=== PATIENT | female | born 1960 | race Caucasian/White ===

== ENCOUNTER 2023-01-23 06:42 | Observation (INO) ==
--- NOTE | 2022-12-08 11:16 | PAT Medication Instructions ---
Medication Instructions Date of Service December 08, 2022 Home Medications magnesium 250 mg tablet 500 mg PO BID muscle cramping Elderberry 50 mg PO DAILY PRN Cold Symptoms Lactobacillus 40-Bifidobact 3-S.thermophilus 100 billion cell capsule (Probiotic) 1 cap PO DAILY PRN Constipation acetylcysteine (bulk) 1 ea miscellaneous DAILY albuterol sulfate 90 mcg/actuation aerosol inhaler (ProAir HFA) 2 puff inhalation QID PRN Shortness Of Breath ascorbic acid (vitamin C) 500 mg chewable tablet (Vitamin C) 500 mg PO DAILY aspirin 81 mg capsule 81 mg PO DAILY biotin 10,000 mcg capsule 10,000 mcg PO DAILY calcium citrate 250 mg PO DAILY PRN if hasn't had enough calcium recently cholecalciferol (vitamin D3) 25 mcg (1,000 unit) tablet (Vitamin D3) 25 mcg PO BID digestive enzymes 1 tab PO DAILY PRN "if she eats bad" garlic 1 cap PO DAILY PRN Cold Symptoms herbal complex no.174 450 mg capsule 450 mg PO DAILY PRN Cold Symptoms potassium chloride 10 mEq capsule,extended release 10 meq PO DAILY quercetin 800 mg PO DAILY turmeric root extract 500 mg capsule 500 mg PO DAILY PRN cold symptoms/pain vitamin B complex 1 cap PO DAILY zinc 50 mg capsule 50 mg PO DAILY STOP taking 2 weeks before surgery Elderberry 50 mg PO DAILY PRN Cold Symptoms biotin 10,000 mcg capsule 10,000 mcg PO DAILY digestive enzymes 1 tab PO DAILY PRN "if she eats bad" garlic 1 cap PO DAILY PRN Cold Symptoms herbal complex no.174 450 mg capsule 450 mg PO DAILY PRN Cold Symptoms quercetin 800 mg PO DAILY turmeric root extract 500 mg capsule 500 mg PO DAILY PRN cold symptoms/pain acetylcysteine (bulk) 1 ea miscellaneous DAILY DO NOT take the morning of surgery magnesium 250 mg tablet 500 mg PO BID muscle cramping Lactobacillus 40-Bifidobact 3-S.thermophilus 100 billion cell capsule (Probiotic) 1 cap PO DAILY PRN Constipation ascorbic acid (vitamin C) 500 mg chewable tablet (Vitamin C) 500 mg PO DAILY calcium citrate 250 mg PO DAILY PRN if hasn't had enough calcium recently cholecalciferol (vitamin D3) 25 mcg (1,000 unit) tablet (Vitamin D3) 25 mcg PO BID potassium chloride 10 mEq capsule,extended release 10 meq PO DAILY vitamin B complex 1 cap PO DAILY zinc 50 mg capsule 50 mg PO DAILY Take morning of surgery With a small sip of water, OTHERWISE NOTHING TO EAT OR DRINK AFTER MIDNIGHT: albuterol sulfate 90 mcg/actuation aerosol inhaler (ProAir HFA) 2 puff inhalation QID PRN Shortness Of Breath aspirin 81 mg capsule 81 mg PO DAILY (unless surgeon directed otherwise) Take evening before surgery magnesium 250 mg tablet 500 mg PO BID muscle cramping Lactobacillus 40-Bifidobact 3-S.thermophilus 100 billion cell capsule (Probiotic) 1 cap PO DAILY PRN Constipation (if needed) cholecalciferol (vitamin D3) 25 mcg (1,000 unit) tablet (Vitamin D3) 25 mcg PO BID albuterol sulfate 90 mcg/actuation aerosol inhaler (ProAir HFA) 2 puff inhalation QID PRN Shortness Of Breath (if needed) Other Notes If you have any questions please call us at [phone] or [phone] or [phone] or [phone]
--- NOTE | 2022-12-09 09:32 | Anesthesiology Consultation ---
Date of Service December 09, 2022 Assessment & Plan (1) Encounter for pre-operative examination: Chart Review Chart Review: Acceptable Risk for Surgery and Patient seen in Pre Admission Testing Pt currently scheduled as 23 hours observation. If surgeon decides to change patient to Same Day Joint, patient would be acceptable risk for TKA, pending patient is motivated, has good support and surgeon's office completes [facility] Program preop requirements. Per PAT appt on 12/09/22, no recent Covid exposures, Covid related symptoms, or recent Covid positive tests. Will leave to surgeon's discretion if preop Covid testing needed Teaching & Discussion Pre-Anesthesia Teaching/Discussion Notes: Instructed NPO after midnight before surgery,except medications with 15 cc of water. Medication instructions provided according to the PAT guidelines. History Surgery Operation Date: 01/23/23 11:00 Proposed Procedures p Right Total Knee Arthroplasty - Chris Muhammad, Height/Weight Height: 5 ft 4 in Weight: 84.8 kg Allergies Allergy/AdvReac Type Severity Reaction Status Date / Time Sulfa (Sulfonamide Allergy Unknown itching Verified 12/05/22 07:58 Antibiotics) all over body Medications Home Medications Medication Instructions Recorded Confirmed Last Taken magnesium 250 mg tablet 500 mg PO BID muscle cramping 11/19/22 12/05/22 Unknown Elderberry 50 mg PO DAILY PRN Cold Symptoms 12/05/22 12/05/22 Unknown Lactobacillus 40-Bifidobact 1 cap PO DAILY PRN Constipation 12/05/22 12/05/22 Unknown 3-S.thermophilus 100 billion cell capsule (Probiotic) acetylcysteine (bulk) 1 ea miscellaneous DAILY 12/05/22 12/05/22 Unknown albuterol sulfate 90 mcg/actuation 2 puff inhalation QID PRN 12/05/22 12/05/22 Unknown aerosol inhaler (ProAir HFA) Shortness Of Breath ascorbic acid (vitamin C) 500 mg 500 mg PO DAILY 12/05/22 12/05/22 Unknown chewable tablet (Vitamin C) aspirin 81 mg capsule 81 mg PO DAILY 12/05/22 12/05/22 Unknown biotin 10,000 mcg capsule 10,000 mcg PO DAILY 12/05/22 12/05/22 Unknown calcium citrate 250 mg PO DAILY PRN if hasn't had 12/05/22 12/05/22 Unknown enough calcium recently cholecalciferol (vitamin D3) 25 25 mcg PO BID 12/05/22 12/05/22 Unknown mcg (1,000 unit) tablet (Vitamin D3) digestive enzymes 1 tab PO DAILY PRN "if she eats 12/05/22 12/05/22 Unknown bad" garlic 1 cap PO DAILY PRN Cold Symptoms 12/05/22 12/05/22 Unknown herbal complex no.174 450 mg 450 mg PO DAILY PRN Cold Symptoms 12/05/22 12/05/22 Unknown capsule potassium chloride 10 mEq 10 meq PO DAILY 12/05/22 12/05/22 Unknown capsule,extended release quercetin 800 mg PO DAILY 12/05/22 12/05/22 Unknown turmeric root extract 500 mg 500 mg PO DAILY PRN cold 12/05/22 12/05/22 Unknown capsule symptoms/pain vitamin B complex 1 cap PO DAILY 12/05/22 12/05/22 Unknown zinc 50 mg capsule 50 mg PO DAILY 12/05/22 12/05/22 Unknown Past Medical History Medical History History of chronic cough tends to cough when laughing a lot and sometimes needs inh prn-"hardly uses" History of COVID-19 x2, most recent in 10/2021, not hosp; cold/flu symptoms both times having covid>no residual symptoms Kyphosis Nausea and vomiting after administration of anesthetic agent following shoulder surgery, had to be hospitalized overnight Scoliosis TMJ (temporomandibular joint syndrome) wears device at night Exercise / Class Metabolic Activity II 4-5 Yardwork/Stairs/Walk up hill (one flight of stairs - no chest pain or SOB- uses cane for support in public (especially after prolonged sitting) ) Past Family History Family History Father Colorectal cancer Past Surgical History Surgical History History of arthroscopy of right shoulder History of esophagogastroduodenoscopy (EGD) Hx of arthroscopy of right knee Hx of colonoscopy Hx of dilation of urethra under anesthesia as child Hx of knee surgery lt knee to try to stop growth of her femur due to her scoliosis and kyphosis [place] teeth extracted Past Anesthesia History No Hx of Anesthesia Complications (with exception to remote hx of PONV ) and No Family Hx of Anesthesia Complications History of PONV History of PONV (remote history - with shoulder surgery - had to stay overnight - had subsequent surgeries without issues ) and Hx of Motion Sickness (possible ) Social History Smoking Status: Never smoker Do You Dip or Chew Tobacco: No Hx Alcohol Use: Yes Alcohol type: wine alcohol intake frequency: a few times a month Hx Substance Use: Yes substance use type: former substance user and marijuana Last Used Substance Other:: only while in college-"a little bit" Review of Systems Coughing - started 11/20/22- improving. No fever or chills. No treatment needed. Patient denies chest pain, shortness of breath, dyspnea on exertion, reflux, cough, wheezing, palpitations. No hx of seizures, stroke, NC, apnea/snoring. No hx of blood clots or blood transfusions Physical Exam Vital Signs VITALS BP 110/73 P 75 TEMP 98.2 SP02 95% RESP 16 Constitutional no acute distress ENMT Mouth: no TMJ clicking Thyromental Distance: > or= 3.5 Finger Breadths (3.5) Mallampati Class: II Missing molar Two front teeth capped Neck neck extension not limited Respiratory normal respiratory effort; no respiratory distress Auscultation: lungs clear to auscultation bilaterally; no wheezes Cardiovascular Rate/Rhythm: regular rate and regular rhythm Heart Sounds: no murmur Vessels: no carotid bruit Musculoskeletal Spine: no pain with cervical ROM Extremities: extremities normal to inspection Psychiatric Orientation: alert Lab Results Anesthesia Preop Results Results Anesthesia Widget: WBC 7.50 K/ul (4.8-10.8) 12/09/22 Hgb 14.3 g/dl (12.0-16.0) 12/09/22 Hct 42.3 % (37.0-47.0) 12/09/22 Plt 356 K/uL (130-400) 12/09/22 Na 140 mmol/L (136-145) 12/09/22 K 4.2 mmol/L (3.5-5.1) 12/09/22 Cl 107 mmol/L (98-107) 12/09/22 CO2 27 mmol/L (21-32) 12/09/22 BUN 17 mg/dl (6-23) 12/09/22 Creat 0.74 mg/dl (0.6-1.2) 12/09/22 Glucose Level 88 mg/dl (70-99(Fasting)) 12/09/22 PT 10.6 Seconds (9.0-12.0) 12/09/22 PTT 27.6 Seconds (21.0-31.0) 12/09/22 INR 1.0 (0.9-1.1) 12/09/22 Blood Type O Positive 12/09/22 Antibody Screen NEGATIVE 12/09/22 Testing Electrocardiogram Date: 12/09/22 Findings: + NSR @ (67bpm ) Normal EKG per cardio Chest X-Ray Date: 12/09/22 Findings: + NAD FINDINGS: Lung volumes are normal. Lungs are clear. There is no pneumothorax or pleural effusion. Cardiac size is normal. Mediastinal contours are normal. There is no evidence for pulmonary edema.
--- NOTE | 2023-01-22 07:58 | History & Physical Report ---
Date of Service January 22, 2023 Assessment & Plan (1) Osteoarthritis of right knee: We will proceed with a right total knee arthroplasty. Postoperatively she will be started on aspirin for DVT prophylaxis and kept overnight in the hospital for postop medical management. She plans to use [facility] upon discharge. History of Present Illness Chief Complaint: Osteoarthritis of the right knee. 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 It has been ever since she was a kid. She was always right bow-legged. She never noticed it much. She was very active. She has been having more and more pain over the last few years. Most of her pain is located in her knee. X-rays and clinical examination have been diagnostic for advanced osteoarthritis of the right knee. After failed conservative treatment, she has elected proceed with a right total knee arthroplasty. . Allergies Allergy/AdvReac Type Severity Reaction Status Date / Time Sulfa (Sulfonamide Allergy Unknown itching Verified 12/05/22 07:58 Antibiotics) all over body Home Medications Medication Instructions Recorded Confirmed Type magnesium 250 mg tablet 500 mg PO BID muscle cramping 11/19/22 12/05/22 History Elderberry 50 mg PO DAILY PRN Cold Symptoms 12/05/22 12/05/22 History Lactobacillus 40-Bifidobact 1 cap PO DAILY PRN Constipation 12/05/22 12/05/22 History 3-S.thermophilus 100 billion cell capsule (Probiotic) acetylcysteine (bulk) 1 ea miscellaneous DAILY 12/05/22 12/05/22 History albuterol sulfate 90 mcg/actuation 2 puff inhalation QID PRN 12/05/22 12/05/22 History aerosol inhaler (ProAir HFA) Shortness Of Breath ascorbic acid (vitamin C) 500 mg 500 mg PO DAILY 12/05/22 12/05/22 History chewable tablet (Vitamin C) aspirin 81 mg capsule 81 mg PO DAILY 12/05/22 12/05/22 History biotin 10,000 mcg capsule 10,000 mcg PO DAILY 12/05/22 12/05/22 History calcium citrate 250 mg PO DAILY PRN if hasn't had 12/05/22 12/05/22 History enough calcium recently cholecalciferol (vitamin D3) 25 25 mcg PO BID 12/05/22 12/05/22 History mcg (1,000 unit) tablet (Vitamin D3) digestive enzymes 1 tab PO DAILY PRN "if she eats 12/05/22 12/05/22 History bad" garlic 1 cap PO DAILY PRN Cold Symptoms 12/05/22 12/05/22 History herbal complex no.174 450 mg 450 mg PO DAILY PRN Cold Symptoms 12/05/22 12/05/22 History capsule potassium chloride 10 mEq 10 meq PO DAILY 12/05/22 12/05/22 History capsule,extended release quercetin 800 mg PO DAILY 12/05/22 12/05/22 History turmeric root extract 500 mg 500 mg PO DAILY PRN cold 12/05/22 12/05/22 History capsule symptoms/pain vitamin B complex 1 cap PO DAILY 12/05/22 12/05/22 History zinc 50 mg capsule 50 mg PO DAILY 12/05/22 12/05/22 History Past Med/Surg History Medical History History of chronic cough tends to cough when laughing a lot and sometimes needs inh prn-"hardly uses" History of COVID-19 x2, most recent in 10/2021, not hosp; cold/flu symptoms both times having covid>no residual symptoms Kyphosis Nausea and vomiting after administration of anesthetic agent following shoulder surgery, had to be hospitalized overnight Scoliosis TMJ (temporomandibular joint syndrome) wears device at night Surgical History History of arthroscopy of right shoulder History of esophagogastroduodenoscopy (EGD) Hx of arthroscopy of right knee Hx of colonoscopy Hx of dilation of urethra under anesthesia as child Hx of knee surgery lt knee to try to stop growth of her femur due to her scoliosis and kyphosis [place] teeth extracted Family History Father Colorectal cancer Social History Smoking Status: Never smoker Second Hand Exposure: No; Do You Dip or Chew Tobacco: No; Hx Alcohol Use: Yes Alcohol type: wine Hx Substance Use: Yes Last Used Substance Other:: only while in college-"a little bit" Preferred Language: [place] Communication Ability: Effective Hedge Trimmer Required: No Beliefs That Will Affect Care: None Current Living Situation: Family Feels Safe at Home: Yes Assistive Devices: Glasses and Other Review of Systems All systems reviewed & are unremarkable except as noted in HPI & below. Physical Exam On physical examination of the right knee, she does have a genu varum deformity. She is a leg length discrepancy. She is severe scoliosis of her lumbar spine. She has no gross ligamentous laxity. She has pain of the distal medial femoral condyle.. Constitutional WD/WN, vitals as above Eyes PERRL, conjunctivae normal, anicteric sclerae ENMT external ear and nose normal, oropharynx normal Neck trachea midline, no thyromegaly Respiratory normal respiratory effort, lungs clear to auscultation Cardiovascular RRR, no murmur, no edema Gastrointestinal (Abdomen) normal bowel sounds, soft, nontender, no hepatosplenomegaly Skin no rashes, warm and dry Psychiatric A+Ox3, euthymic affect Results & Data Results & Data Laboratory Results . Diagnostic Findings X-rays of the right knee show advanced osteoarthritis with joint space narrowing, osteophyte formation, and [id number] tubulation.. PG Care Time/CCT Total # of Minutes Spent Total Time Spent with Patient: Total time spent is greater than 50% in coordination of care (as documented) at patient's floor/unit and/or counseling patient: Coding Level of Care Code None Diagnoses Osteoarthritis of right knee M17.11
--- NOTE | 2023-01-23 06:32 | History & Physical Bridge Note ---
Date of Service January 23, 2023 History & Physical Bridge Note I have examined the patient, reviewed the History & Physical and in the interval since the performance of the History & Physical I have noted the following changes of clinical significance: no changes noted
[~2023-01-23 06:42] MED LIST: ACETAMINOPHEN 500 MG TAB PO SCH; FAMOTIDINE 20 MG TAB PO SCH; GABAPENTIN 600 MG DOSE PO SCH; LR 500ML BOLUS, THEN 15ML/HR IV SCH; LR 60ML/HR IV SCH; ORTHO JOINT ANESTHETIC ONE; ORTHO JOINT MIX INFIL SCH; ROPIVACAINE 0.5% 5 MG/ML 30 ML VIAL ONE; TRANEXAMIC ACID 1,000 MG **IV Intra-op IV SCH; TRANEXAMIC ACID 1,000 MG **IV Pre-op IV SCH; ceFAZolin 2000MG 2,000 MG/15 ML SYR IV SCH; dexAMETHasone 4 MG TAB PO SCH
[2023-01-23] MEDS ORDERED: MIDAZOLAM HCL 1 MG/ML 2ML VIAL ONE (07:03)
[2023-01-23] MEDS ORDERED: ePHEDrine sulfate 50 MG/ML AMP IV PRN (07:25)
[2023-01-23] MEDS ORDERED: ONDANSETRON INJ 2 MG/ML 2 ML VIAL IV PRN ×2 (07:25→13:11)
[2023-01-23] MEDS ORDERED: fentaNYL citrate PF 100 MCG/2 ML VIAL IV PRN (07:25)
[2023-01-23] MEDS ORDERED: HYDROmorphone INJ 2 MG/ML SYR/VIAL IV PRN (07:25)
[2023-01-23] MEDS ORDERED: ATROPINE SULFATE 0.1 MG/ML 10ML SYR IV PRN (07:25)
[2023-01-23] MEDS ORDERED: PHENYLEPHRINE 100MCG/ML 5ML SYR ONE (08:34)
[2023-01-23] MEDS ORDERED: PHENYLEPHRINE HCL 10 MG/ML VIAL ONE (08:34)
[2023-01-23] MEDS ORDERED: PROPOFOL IV EMULSION 10 MG/ML 20 ML VIAL IV ONE ×2 (08:34→09:41)
--- NOTE | 2023-01-23 09:48 | Operative Report ---
PG Post Operative Report Pre & Post Diagnosis Operation Date: 01/23/23 08:10 Pre-Op Diagnosis: Degenerative Joint Disease Right Knee Post-Op Diagnosis: Degenerative Joint Disease Right Knee I identified the patient and participated in the time-out.: Yes Procedure Operation Date: 01/23/23 08:10 Actual Procedures p Right Total Knee Arthroplasty(Right) - Chris Muhammad DO Surgeon Chris Muhammad DO Fly Maker Chris Nguyen PA-C Estimated Blood Loss 30 Findings Consistent with Post-Op Diagnosis Specimens Right femoral tibial bone Description of Procedure Implants used: I used a Kierra Persona total knee arthroplasty system with a size 7 PRK femur with a 30 mm stem extension, E tibia with a 30 mm stem extension, 31 oval patella, and a size 14 CCK polyethylene bearing. All components were cemented in place with Biomet cement. Merry arrived [facility] for the above procedure. She was seen in the preoperative holding area and the operative extremity was identified and signed. She was given a preoperative antibiotic, TXA, a spinal anesthetic and an adductor nerve block. She was taken back to the operating room and laid on the table in supine position. She was given basic sedation. The operative knee was then prepped and draped in sterile fashion. A timeout was done, and the patient and the operative extremity was properly identified. A midline incision was made directly over the patella. Dissection was taken down to the extensor mechanism. A medial parapatellar arthrotomy was used. The medial retinaculum was released and the fat pad was mostly excised. The knee was flexed and the ACL, PCL, and meniscus were removed. A drill was sent down the center of the femoral canal followed by an intramedullary krystina. Off that krystina a distal femoral cutting block was placed. 9 mm was resected off the distal femur at 5 of valgus. A posterior referencing AP sizing guide was then placed on the distal femur. The femur measured to be a size 7. 2 drill holes were placed in 3 of external rotation. A 4-in-1 cutting block was then impacted into place. Anterior, posterior, and chamfer cuts were then made. The proximal tibia was then exposed. An external tibial alignment guide was placed. A tibial cut guide was then anchored in place and the proximal tibia was then resected. The posterior aspect of the knee was then opened up and any additional meniscus fragments and osteophytes were removed. The tibia measured to be a size E. The tibial plate was then placed in the appropriate rotation and the tibia was drilled and punched. Trial components were then placed. I used a size 14 CCK polyethylene insert. The knee was brought through a full range of motion and felt to be stable. The peg holes for the femoral component were then drilled. The patella was then everted and 9 mm was resected off the posterior aspect of the patella. The patella measured to be a size 31 oval. 3 peg holes were then drilled. A trial patella was placed. The knee was once again brought through a full range of motion and felt to be stable. Trial components were then removed. The surrounding soft tissues were injected with 100 cc of an orthopedic pain control cocktail. All components were then cemented into place with Biomet cement. The final polyethylene insert was then snapped into place. Once cement was dry the tourniquet was deflated. Hemostasis was obtained. A dilute betadyne lavage was then done for 3 minutes. The joint was then irrigated with normal saline solution. The medial parapatellar arthrotomy was then closed with #1 Vicryl suture. The skin was closed with 2-0 Vicryl, 3-0V lock suture, and raudel. A soft compressive dressing was placed. She was then transferred to a hospital bed and taken to the postanesthesia care unit in stable condition. She tolerated the procedure well. Chris Nguyen PA-C, was present for the entire procedure. He was critical for patient positioning, prepping, draping, retraction exposure, wound closure and application of sterile dressing. I attest to the content of the Intraoperative Record and any orders documented therein. Any exceptions are noted below.
--- NOTE | 2023-01-23 10:28 | Anesthesiology Progress Note ---
Date of Service January 23, 2023 Anesthesia Post Procedure Vital Signs Vital Signs: Temp Pulse Resp BP Pulse Ox O2 Del Method 01/23/23 07:22 36.6 C 74 18 137/72 97 Room Air Transfer of Care Handoff Completed per policy Notes Mental Status: alert / awake / arousable and participated in evaluation Patient Amnestic to Procedure: Yes Nausea / Vomiting: adequately controlled Pain: adequately controlled Airway Patency, RR, SpO2: stable & adequate BP & HR: stable & adequate Hydration State: stable & adequate Anesthetic Complications: no major complications apparent and Pt Satisfied with anesthetic care
--- NOTE | 2023-01-23 10:53 | XRay Report ---
XR knee RT 1 or 2V routine HISTORY: 62 years-old Female Surgical Post Op right knee arthroplasty COMPARISON: 11/19/2022 TECHNIQUE: 2 views of the right knee FINDINGS: Total joint arthroplasty with patellar resurfacing. Anterior midline skin raudel with expected posto perative soft tissue swelling and deep tissue air. No acute fracture, dislocation or unexpected opaqu e foreign body. IMPRESSION: Total joint arthroplasty with expected postoperative changes. ACT 112: Negative or not required by law. The above report was generated using voice recognition software. It may contain grammatical, syntax o r spelling errors. Electronically signed by: Derick James M.D. 01/23/2023 10:51 AM
[2023-01-23] MEDS ORDERED: oxyCODONE HCL IR 5 MG TAB (IMMEDIATE RELEASE) PO PRN (13:11)
[2023-01-23] MEDS ORDERED: ALBUTEROL HFA 8 GM INHALER INH PRN (13:11)
[2023-01-23] MEDS ORDERED: HYDROmorphone INJ 0.5 MG/0.5 ML SYR IV PRN (13:11)
[2023-01-23] MEDS ORDERED: bisacodyL 10 MG SUPP PR PRN (13:11)
[2023-01-23] MEDS ORDERED: MAGNESIUM HYDROXIDE SUSP 30 ML UDC PO PRN (13:11)
[2023-01-23] MEDS ORDERED: METOCLOPRAMIDE HCL INJ 5 MG/ML 2 ML VIAL IV PRN (13:11)
[2023-01-23] MEDS ORDERED: NALOXONE HCL 0.4 MG/1 ML VIAL/CARP IV PRN (13:11)
[2023-01-23] MEDS: SODIUM CHLORIDE 0.9% 1,000 ML IV SCH ×2 (13:57→21:58)
[2023-01-23] MEDS: KETOROLAC 30 MG/ML VIAL IV SCH ×2 (13:58→19:54)
[2023-01-23] MEDS: ACETAMINOPHEN 500 MG TAB PO SCH ×2 (16:15→23:15)
[2023-01-23] MEDS: ceFAZolin 2000MG 2,000 MG/15 ML SYR IV SCH ×2 (16:15→23:15)
[2023-01-23] MEDS ORDERED: SENNA 8.6 MG TAB PO SCH (21:00)
[2023-01-23] MEDS: DOCUSATE SODIUM 100 MG CAP PO SCH (21:53)
[2023-01-23] MEDS: ASPIRIN 81 MG ECTAB PO SCH (21:53)
[2023-01-24] MEDS: KETOROLAC 30 MG/ML VIAL IV SCH ×2 (02:16→08:23)
[2023-01-24] MEDS: ACETAMINOPHEN 500 MG TAB PO SCH (06:08)
--- NOTE | 2023-01-24 07:11 | Orthopedic Progress Note ---
Date of Service January 24, 2023 Assessment & Plan (1) Status post right knee replacement: Overall she is doing very well. She is not having much pain in the right knee. The cramping she is having is around her quad and her hamstring. She will be seen by physical therapy today for ambulation and range of motion exercises. The nursing staff can change her dressing after physical therapy. She is on aspirin for DVT prophylaxis. She can be discharged home later today. She will follow-up with orthopedics in 2 weeks. Li Ferro was seen and examined at bedside this morning. Overall she is doing fairly well. She is not having too much pain in the right knee. She was having some cramping last night. She has been up and ambulating into the hallways. She has no complaints.. Review of Systems All systems reviewed & are unremarkable except as noted in HPI & below. Physical Exam On physical examination of the right knee, the dressing is clean and dry. Her leg is out full extension. She has active dorsiflexion plantarflexion of her right ankle.. Results & Data Results & Data Laboratory Results . Diagnostic Findings Postoperative x-rays of the right knee show the prosthesis to be in anatomic alignment without any evidence of fracture complication, or loosening.. PG Care Time/CCT Total # of Minutes Spent Total Time Spent with Patient: Total time spent is greater than 50% in coordination of care (as documented) at patient's floor/unit and/or counseling patient: Coding Level of Care Code 39573 Post Operative Follow-Up Diagnoses Status post right knee replacement Z96.651
--- NOTE | 2023-01-24 07:12 | Discharge Summary ---
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 It has been ever since she was a kid. She was always right bow-legged. She never noticed it much. She was very active. She has been having more and more pain over the last few years. Most of her pain is located in her knee. X-rays and clinical examination have been diagnostic for advanced osteoarthritis of the right knee. After failed conservative treatment, she has elected proceed with a right total knee arthroplasty. . Admission Exam (Per Admitting) On physical examination of the right knee, she does have a genu varum deformity. She is a leg length discrepancy. She is severe scoliosis of her lumbar spine. She has no gross ligamentous laxity. She has pain of the distal medial femoral condyle.. Principal Diagnosis Same as "Discharge Diagnosis" noted below under Discharge Instructions. Discharge Exam On physical examination of the right knee, the dressing is clean and dry. Her leg is out full extension. She has active dorsiflexion plantarflexion of her right ankle.. Discharge Data Procedures Performed Operation Date: 01/23/23 08:10 Actual Procedures p Right Total Knee Arthroplasty(Right) - Chris Muhammad DO Ordered Studies 01/23/23 05:00 US - OR guided needle placemen Routine Hospital Course (1) Status post right knee replacement: On January 23, 2023 Merry arrived at [facility] and underwent a right knee replaced without complication. She had a spinal anesthetic. Postoperatively she was started on aspirin for DVT prophylaxis and transferred to the general orthopedic floors. Her hospital course was uneventful. On postop day #1, her vital signs were stable and her pain was well controlled. She was able to participate well with physical therapy doing ambulation and range of motion exercises. She was then discharged home. She will follow-up with orthopedics in 2 weeks. PG Care Time/CCT Total # of Minutes Spent Total Time Spent with Patient: Total time spent is greater than 50% in coordination of care (as documented) at patient's floor/unit and/or counseling patient: Discharge Plan Discharge Items Patient Disposition: Home - Home Health Services Reason For Visit: Degenerative Joint Disease Right Knee Discharge Diagnosis: Right knee replacement Activity: Per Instructions section Non-emergency contact: Surgeon Call non-emergency contact if: your wound has increased redness and your wound has increased drainage Follow-up/Referrals: PCP,NO [Primary Care Provider] - Diet: Regular Addtl Attending Provider Instructions: Activity and Therapy Recommendations: * If you are using [facility] then therapy will be provided at your home until they feel you have accomplished all of your goals. * If you are using [facility] then Physical Therapy will be provided until they feel you are ready to start Outpatient Physical Therapy. * If you are not using home therapy then Outpatient Physical Therapy should start about 3-5 days from your day of surgery. Therapy will last about 6-10 weeks * It is important not to put a pillow under your knee when you are relaxing or sleeping. It is just as important to make sure you are getting your knee perfectly straight as it is to regain your knee bend. * You were shown a series of exercises in the hospital. Do these exercises three times each day including the exercises you were shown in physical therapy. * Get up and walk several times each day. For the first four weeks, try not to stand or walk for more than one hour at a time. If you do stand or walk for more than one hour, you will not hurt anything, but your leg will likely swell. * As you feel comfortable, you may change from the walker or crutches to a cane and then to independent walking. Medications: * Narcotic You will likely be sent home from the hospital with a prescription for the narcotic pain medication that worked best throughout your stay. * Aspirin Most patients will be required to take Aspirin 81mg twice a day for 6 weeks after surgery. This is obtained [id number] and a prescription is not necessary. * Other medications may be prescribed for specific circumstances. If you have any questions, please call the office at . * Resume previous home medications unless otherwise instructed TEDs/Elastic Stockings: The white elastic stockings help limit swelling and prevent blood clots from forming in your legs.~ The more you wear them, the more they work. Wear them for six weeks. Dressing Care: The dressing can be changed after physical therapy on postop day #1. Daily dry dressing changes for a few days, especially if the incision is still draining some. If the incision is not draining then you may leave the raudel open to air. If there is a little bit of drainage or if the raudel are getting stuck on your clothing then cover the incision with a dry dressing. The raudel will be removed at your 2 week follow-up appointment. Showering: You may shower 5 days from the day of surgery as long as the incision is no longer draining. You may shower with the raudel exposed. Let soapy water run over the raudel and pat them dry. Do not scrub or soak the incision. Things To Watch For: * Drainage from the incision site that occurs more than one week after your surgery. * Increased redness at the incision site. * Fever above 102 degrees Fahrenheit. * Unusual chest pain or shortness of breath. * Call [facility] at with any of the above problems Follow-Up Visit: Follow-up with Dr. Muhammad's PA (Chris Nugyen) 2-3 weeks after your day of surgery. He will remove your raudel and answer any questions. If you have any additional questions or concerns, Dr Muhammad is usually in the office at the same time and will be available An appointment was probably scheduled when you signed-up for surgery in the office. If you have any questions call Office Instructions: More detailed instructions as well as Frequently Asked Questions were provided in a folder by our office when you signed-up for surgery. Please review these instructions when you get home. If you have any further questions or concerns, please feel free to call the office at [phone] Pending Studies at Discharge: No Stand-Alone Forms: My [facility], Smoking Cessation Medications and DC Order Prescriptions: New oxycodone 5 mg Tablet 5 mg PO Q4H PRN (Reason: pain) Qty: 30 0RF Continued magnesium 250 mg tablet 500 mg PO BID Multi Enzymes Tablet 1 tab PO DAILY PRN (Reason: "if she eats bad") potassium chloride 10 mEq Capsule, Extended Release 10 meq PO DAILY biotin 10,000 mcg Capsule 10,000 mcg PO DAILY ascorbic acid (vitamin C) [Vitamin C] 500 mg Tablet,Chewable 500 mg PO DAILY garlic Capsule 1 cap PO DAILY PRN (Reason: Cold Symptoms) albuterol sulfate [ProAir HFA] 90 mcg/actuation Hfa Aerosol Inhaler 2 puff INHALATION QID PRN (Reason: Shortness Of Breath) acetylcysteine (bulk) [F-[id number]-Cysteine] Powder 1 ea MISCELLANEOUS DAILY vitamin B complex [Super B Complex] Capsule 1 cap PO DAILY zinc 50 mg Capsule 50 mg PO DAILY calcium citrate 250 mg calcium Tablet 250 mg PO DAILY PRN (Reason: if hasn't had enough calcium recently) cholecalciferol (vitamin D3) [Vitamin D3] 25 mcg (1,000 unit) Tablet 25 mcg PO BID Echinacea and Goldenseal 450 mg Capsule 450 mg PO DAILY PRN (Reason: Cold Symptoms) turmeric root extract 500 mg Capsule 500 mg PO DAILY PRN (Reason: cold symptoms/pain) Probiotic 100 billion cell Capsule 1 cap PO DAILY PRN (Reason: Constipation) Elderberry 50 mg PO DAILY PRN (Reason: Cold Symptoms) quercetin 800 mg PO DAILY Patient Comments: w/bromelain-155mg Changed aspirin 81 mg Capsule 81 mg PO BID 42 Days Qty: 0 0RF Admission Data Admit Date/Time: 01/23/23 10:13 Attending Provider: Chris Muhammad Admit Provider: Chris Muhammad Primary Care Provider: PCP,INDERJIT
[2023-01-24] MEDS ORDERED: dexAMETHasone 4 MG TAB PO SCH (08:00)
[2023-01-24] MEDS: DOCUSATE SODIUM 100 MG CAP PO SCH (08:25)
[2023-01-24] MEDS: ASPIRIN 81 MG ECTAB PO SCH (08:25)
[2023-01-24] MEDS ORDERED: POTASSIUM CHLORIDE 10 MEQ TABCR PO SCH (09:00)
[2023-01-24] MEDS ORDERED: MULTIVITAMIN TAB PO SCH (09:00)
== END 2023-01-24 11:32 | disposition home health service (06) ==
LOC: PACUINP 06:42 → ASU 06:42 → 3E 12:58